=== PATIENT | female | born 1955 | race Caucasian/White ===

== ENCOUNTER 2018-03-07 14:16 | Inpatient (IN) ==
--- NOTE | 2018-03-07 15:55 | P.HPIM ---
History of Present Illness Primary Care Physician: Dr. Crawford Chief Complaint: ankle pain History of Present Illness: This is a 62-year-old female patient with past medical history which includes chronic kidney disease stage II, COPD, hyperlipidemia, hypertension, irritable bowel syndrome, rheumatoid arthritis and seizure disorder. Patient has been directly admitted at the request of podiatry Dr. Sol for displaced right medial malleolar fracture. Dr. Sol plans for surgical intervention tomorrow. Patient does report mechanical fall 03/05/18 with right ankle pain after the fall. Patient reports right ankle tenderness, bruising, edema and pain. Patient also reports she is unable to bear weight on the right lower extremity secondary to pain. She has been using a wheelchair to get around at home. Otherwise patient reports she is in her normal state of health. Patient denies shortness of breath fevers chills nausea vomiting diarrhea constipation or chest pain. PMH: Chronic kidney disease stage II, COPD, hyperlipidemia, hypertension, irritable bowel syndrome, rheumatoid arthritis and seizure disorder PSxH: Cataract surgery, cervical surgery, colonoscopy, EGD, Jasen fundoplication, excision of ear lesions, appendectomy, injection lumbar paravertebral facet joint, decompression of median nerve for carpal tunnel syndrome, MEREDITH/BSO Family medical history reviewed and noncontributory. Social history: , disabled Tobacco former use Denies EtOH use Inpatient Certification Inpatient Certification: I certify that the inpatient services were ordered in accordance with Medicare regulations governing the order. This includes certification that hospital inpatient services are reasonable and necessary and in the case of services not specified as inpatient-only under 42 CFR 419.22(n), that they are appropriately provided as inpatient services in accordance to with the 2-midnight benchmark under 43 CFR 412.3(e) Medications and Allergies Allergies Allergy/AdvReac Type Severity Reaction Status Date / Time No Known Allergies Allergy Uncoded 06/26/14 12:47 Home Medications Medication Instructions Recorded Confirmed Type adalimumab [Humira Pen] See Label Instructions .ROUTE 03/07/18 03/07/18 History .COMPLEX albuterol sulfate [Ventolin HFA] 2 puff INHALATION Q4-6H PRN 03/07/18 03/07/18 History benztropine 2 mg PO BID 03/07/18 03/07/18 History buspirone 10 mg PO TID 03/07/18 03/07/18 History cyclobenzaprine 10 mg PO TID PRN 03/07/18 03/07/18 History donepezil 10 mg PO DAILY 03/07/18 03/07/18 History fluticasone-salmeterol [AirDuo 1 puff INHALATION Q12H 03/07/18 03/07/18 History RespiClick] furosemide 20 mg PO BID 03/07/18 03/07/18 History lamotrigine 200 mg PO AC 03/07/18 03/07/18 History lamotrigine 300 mg PO DAILY@1700 03/07/18 03/07/18 History metoprolol tartrate 50 mg PO BID 03/07/18 03/07/18 History montelukast 10 mg PO QPM 03/07/18 03/07/18 History morphine 30 mg PO TID 03/07/18 03/07/18 History omega 0-ump-gii-fish oil [Fish Oil] 1,000 mg PO DAILY 03/07/18 03/07/18 History ondansetron HCl 8 mg PO TID PRN 03/07/18 03/07/18 History pantoprazole 20 mg PO BID 03/07/18 03/07/18 History ranitidine HCl 150 mg PO HS 03/07/18 03/07/18 History risperidone 0.5 mg PO AC 03/07/18 03/07/18 History risperidone 1 mg PO HS 03/07/18 03/07/18 History rosuvastatin 10 mg PO DAILY 03/07/18 03/07/18 History topiramate 100 mg PO BID 03/07/18 03/07/18 History ursodiol 300 mg PO TID 03/07/18 03/07/18 History venlafaxine 112.5 mg PO DAILY 03/07/18 03/07/18 History vitamin B complex [B 1 tab PO DAILY 03/07/18 03/07/18 History Complex-Vitamin B12] Physical Exam Narrative: GENERAL: This is a well-nourished, well-developed patient, in no apparent distress. CARDIOVASCULAR: Regular rate and rhythm RESPIRATORY: Clear to auscultation. Breath sounds equal bilaterally. GASTROINTESTINAL: Abdomen soft, non-tender, nondistended. Normal active bowel sounds MUSCULOSKELETAL: Extremities without clubbing, cyanosis, or edema. Right LE in splint NEURO: Alert & Oriented x4 to person, place, time, situation. Moves all ext x4 Results Labs CBC & Chem 7: 03/08/18 03:37 03/08/18 03:37 Capringrace VTE Risk Assessment Capcalderoni VTE Risk Assessment: Moderate/High Risk (score >= 2) Arpitrini Risk Assessment Model: Point Value = 1 Point Value = 2 Point Value = 3 Point Value = 5 Age 41-60 Minor surgery BMI > 25 kg/m2 Swollen legs Varicose veins or History of unexplained or recurrent spontaneous Oral contraceptives or hormone replacement Sepsis (< 1 month) Serious lung disease, including pneumonia (< 1 month) Abnormal pulmonary function Acute myocardial infarction Congestive heart failure (< 1 month) History of inflammatory bowel disease Medical patient at bed rest Age 61-74 Arthroscopic surgery Major open surgery (> 45 min) Laparoscopic surgery (> 45 min) Malignancy Confined to bed (> 72 hours) Immobilizing plaster cast Central venous access Age >= 75 History of VTE Family history of VTE Factor V Leiden Prothrombin [id number] Lupus anticoagulant Anticardiolipin antibodies Elevated serum homocysteine Heparin-induced thrombocytopenia Other congenital or acquired thrombophilia Stroke (< 1 month) Elective arthroplasty Hip, pelvis, or leg fracture Acute spinal cord injury (< 1 month) Prophylaxis Regimen: Total Risk Factor Score Risk Level Prophylaxis Regimen 0-1 Low Early ambulation 2 Moderate Order ONE of the following: *Sequential Compression Device (SCD) *Heparin 5000 units SQ BID 3-4 Higher Order ONE of the following medications: *Heparin 5000 units SQ TID *Enoxaparin/Lovenox 40 mg SQ daily (WT < 150 kg, CrCl > 30 mL/min) *Enoxaparin/Lovenox 30 mg SQ daily (WT < 150 kg, CrCl > 10-29 mL/min) *Enoxaparin/Lovenox 30 mg SQ BID (WT < 150 kg, CrCl > 30 mL/min) AND/OR *Sequential Compression Device (SCD) 5 or more Highest Order ONE of the following medications: *Heparin 5000 units SQ TID (Preferred with Epidurals) *Enoxaparin/Lovenox 40 mg SQ daily (WT < 150 kg, CrCl > 30 mL/min) *Enoxaparin/Lovenox 30 mg SQ daily (WT < 150 kg, CrCl > 10-29 mL/min) *Enoxaparin/Lovenox 30 mg SQ BID (WT < 150 kg, CrCl > 30 mL/min) AND *Sequential Compression Device (SCD) Assessment and Plan Plan This is a 62-year-old female patient with past medical history which includes chronic kidney disease stage II, COPD, hyperlipidemia, hypertension, irritable bowel syndrome, rheumatoid arthritis and seizure disorder. Patient has been directly admitted at the request of podiatry Dr. Sol for displaced right medial malleolar fracture. Dr. Sol and plans for surgical intervention tomorrow. Patient does report mechanical fall with right ankle pain after the fall. Patient reports right ankle tenderness bruising edema and pain. Patient also reports she is unable to bear weight on the right lower extremity secondary to pain. Otherwise patient reports she is in her normal state of health. Patient denies shortness of breath fevers chills nausea vomiting diarrhea constipation or chest pain. Displaced right medial malleolar fracture Consult to podiatry Dr. Sol, plans for surgical intervention tomorrow afternoon Chronic kidney disease stage II Avoid nephrotoxic agents Monitor renal function COPD Continue home Air Duo Duonebs as needed Hyperlipidemia Continue home rosuvastatin Hypertension Continue home BP medications Rheumatoid arthritis continue home morphine ER 30 mg PO Q8h hold Humira at this time Seizure disorder continue home lamotrigine BID DVT prophylaxis with SCD on non-affected leg. Chemical DVT prophylaxis once cleared by podiatry
[2018-03-07] MEDS ORDERED: Acetaminophen 325 MG Tablet PO PRN (15:57)
--- NOTE | 2018-03-07 16:26 | XR ---
EXAM DATE: 03/07/2018 4:22 PM EST AGE/SEX: 62 years / Female INDICATIONS: Evaluate for pneumonia, pneumothorax, or communicable disease. Pre op ankle surgery. CLINICAL DATA: This is the patient's initial encounter. Patient reports that signs and symptoms have been present for 1 day and indicates a pain score of 0/10. MEDICAL/SURGICAL HISTORY: Chronic obstructive pulmonary disease. None. COMPARISON: No prior exams available for comparison. FINDINGS: A single AP view of the chest demonstrates the lungs to be symmetrically aerated without evidence of mass, infiltrate or effusion. Tiny granuloma in the right midlung. The cardiomediastinal contours ar e unremarkable. Osseous structures are intact. CONCLUSION: No acute intrathoracic disease. Electronically signed by: Yayo Rasmussen MD Board Certified Radiologist 03/07/2018 4:24 PM EST
[2018-03-07] MEDS ORDERED: FLUTICASONE SALMETEROL INHALATION SCH (16:30)
[2018-03-07] MEDS ORDERED: LAMOTRIGINE 300 MG PO SCH (17:00)
[2018-03-07] MEDS: Morphine Sulfate 30 MG SR Tablet PO SCH (18:31)
[2018-03-07] MEDS: Montelukast 10 MG Tablet PO SCH (18:36)
[2018-03-07] MEDS ORDERED: [UNRECOGNIZED DRUG - OTHER] INH SCH (20:00)
[2018-03-07] MEDS: Topiramate 100 MG Tablet PO SCH (21:34)
[2018-03-07] MEDS: Metoprolol Tartrate 50 MG Tablet PO SCH (21:34)
[2018-03-07] MEDS: Senna/Docusate Sodium 8.6/50 MG Tablet PO SCH (21:35)
[2018-03-07] MEDS: Pantoprazole Sodium 20 MG DR Tablet PO SCH (21:36)
[2018-03-08] MEDS: Morphine Sulfate 30 MG SR Tablet PO SCH ×3 (02:08→20:09)
[2018-03-08 04:38] LABS: Baso # (Auto) 0.1 th/mm3 (0.0-0.2); Eos # (Auto) 0.6 th/mm3 (0.0-0.4); Eos % (Auto) 7.6 % (0.0-4.0); Hemoglobin 11.8 gm/dL (11.6-15.3); Lymph # (Auto) 2.3 th/mm3 (1.0-4.8); Mean Corpuscular HGB Conc 33.7 % (32.0-36.0); Mean Corpuscular Hemoglobin 28.4 pg (27.0-34.0); Mean Corpuscular Volume 84.4 fL (80.0-100.0); Mean Platelet Volume 7.6 fL (7.0-11.0); Mono # (Auto) 0.9 th/mm3 (0.0-0.9); Mono % (Auto) 10.9 % (0.0-8.0); Neut # (Auto) 4.3 th/mm3 (1.8-7.7); Neut % (Auto) 52.5 % (16.0-70.0); Platelet Count 290 th/mm3 (150-450); Red Blood Count 4.15 mil/mm3 (4.00-5.30); Red Cell Distribution Width 15.3 % (11.6-17.2); White Blood Count 8.2 th/mm3 (4.0-11.0)
[2018-03-08 04:43] LABS: INR 1.1 Ratio; Prothrombin Time 10.8 sec (9.8-11.6)
[2018-03-08 05:07] LABS: Alanine Aminotransferase 45 U/L (10-53); Albumin 3.3 g/dL (3.4-5.0); Anion Gap 7 meq/L (5-15); Aspartate Aminotransferase 47 U/L (15-37); Blood Urea Nitrogen 13 mg/dL (7-18); Calcium 9.2 mg/dL (8.5-10.1); Carbon Dioxide 30.2 meq/L (21.0-32.0); Chloride 103 meq/L (98-107); Glomerular Filtration Rate 80 mL/min (>89); Glucose,Random 114 mg/dL (74-106); Sodium 140 meq/L (136-145)
[2018-03-08 05:09] LABS: Alkaline Phosphatase 118 U/L (45-117); Total Protein 6.9 g/dL (6.4-8.2)
[2018-03-08] MEDS: Senna/Docusate Sodium 8.6/50 MG Tablet PO SCH ×2 (08:55→22:42)
[2018-03-08] MEDS: Metoprolol Tartrate 50 MG Tablet PO SCH ×2 (08:55→22:26)
[2018-03-08] MEDS: Topiramate 100 MG Tablet PO SCH ×2 (08:56→22:26)
[2018-03-08] MEDS: Pantoprazole Sodium 20 MG DR Tablet PO SCH ×2 (08:56→22:26)
[2018-03-08] MEDS: lamoTRIgine 100 MG Tablet PO SCH ×2 (08:56→19:20)
[2018-03-08] MEDS: Venlafaxine XR 37.5 MG Capsule PO SCH (08:58)
[2018-03-08] MEDS ORDERED: ROSUVASTATIN 10 MG PO SCH (09:00)
[2018-03-08] MEDS ORDERED: Potassium Chlor 20 mEq Premix 20 MEQ/100 ML PIGGYBACK IV.SIG SCH (10:00)
--- NOTE | 2018-03-08 13:45 | ECG ---
Date Performed: 03/08/2018 Time Performed: 02:06:13 PTAGE: 62 years EKG: Sinus rhythm NONSPECIFIC ST & T-WAVE ABNORMALITY BORDERLINE ECG Since the PREVIOUS TRACING , no significant change noted PREVIOUS TRACIN03/07/14 DOCTOR: Zach Joe Interpretating Date/Time 03/08/2018 13:34:00
[2018-03-08] MEDS ORDERED: Metoprolol Tartrate 25 MG Tablet PO SCH (14:04)
[2018-03-08] MEDS ORDERED: Chlorhexidine Gluconate 2% 1 Pack (2 Cloths) TOPICAL ONE (14:04)
[2018-03-08] MEDS ORDERED: Sodium Chlor 0.9% Inj 500 ML IV.SIG SCH (14:15)
[2018-03-08] MEDS ORDERED: Morphine Sulfate Inj 2 MG/ML Vial ONE (15:19)
[2018-03-08] MEDS ORDERED: Morphine Sulfate Inj 2 MG/ML Vial IV.PUSH ONE (15:30)
[2018-03-08] MEDS ORDERED: Famotidine PF Inj 20 MG/2 ML Vial IV.PUSH ONE (15:45)
[2018-03-08] MEDS ORDERED: ceFAZolin Inj 1 GM Vial (Addvantage) IV.SIG ONE (16:16)
--- NOTE | 2018-03-08 16:23 | P.CONPOD ---
History of Present Illness Service: podiatry Consult date: 03/08/18 Reason for Consult: right ankle fracture Primary Care Provider: UNKNOWN Chief Complaint: ankle pain History of Present Illness: Patient sustained right ankle fracture new year'. She was seen in urgent care and came into clinic with ankle pain. She was sent to hospital for surgery due to significant comorbidities. Review of Systems All other systems reviewed negative except as stated in HPI [facility] - History History Provided By: Patient - Medical History Medical History: Medical History (Last Updated 03/07/18 @ 23:17 by Gertrudis Eric RN) COPD (chronic obstructive pulmonary disease) Cataract Chronic kidney disease (CKD) FH: MEREDITH-BSO (total abdominal hysterectomy and bilateral salpingo-oophorectomy) Hyperlipidemia Irritable bowel syndrome Rheumatoid arthritis Seizure disorder - Surgical History Surgical History: Surgical History (Last Updated 03/07/18 @ 23:17 by Gertrudis Eric RN) History of Ting fundoplication Hx of appendectomy - Tobacco History Second Hand Smoke Exposure: No Tobacco Use In Past 30 Days: Yes Smoking Status: Current every day smoker Tobacco Type: Smokeless Tobacco - Alcohol History How Often Do You Have a Drink Containing Alcohol: Never - Substance Use History Substance History: No History of Abuse Medications and Allergies Active Medications: Active Medications Acetaminophen (Tylenol) 650 mg PO Q4H PRN PRN Reason: Temp > 100.4 Hydrocodone Bitart/Acetaminophen ([place] 5/325) 1 tab PO Q4H PRN PRN Reason: pain 1-10, Al Hydroxide/Mg Hydroxide (Milk Of Magndino Liq) 30 ml PO Q12H PRN PRN Reason: Mild Constipation Albuterol (Duoneb Neb (Prn)) 1 ampul NEB Q2HR NEB PRN PRN Reason: SHORTNESS OF BREATH/WHEEZING Last Admin: 03/08/18 15:24 Dose: 1 ampul Atorvastatin Calcium (Lipitor) 20 mg PO DAILY [facility] Last Admin: 03/08/18 08:56 Dose: 20 mg Buspirone HCl (Buspar) 5 mg PO TID [facility] Last Admin: 03/08/18 08:56 Dose: 5 mg Donepezil HCl (Aricept) 10 mg PO DAILY [facility] Last Admin: 03/08/18 08:56 Dose: 10 mg Hydromorphone HCl (Dilaudid Pf Inj) 0.5 mg IV.PUSH Q4H PRN PRN Reason: BREAKTHROUGH PAIN Lactated Ringer's (Lr 1000 Ml Inj) 1,000 mls @ 30 mls/hr IV.SIG .Q24H [facility] Stop: 03/09/18 14:14 Last Admin: 03/08/18 14:00 Dose: 30 mls/hr Sodium Chloride (Ns Inj) 500 mls @ 30 mls/hr IV.SIG .[id number] [facility] Stop: 03/09/18 06:54 Lamotrigine (Lamictal) 200 mg PO DAILY [facility] Last Admin: 03/08/18 08:56 Dose: 200 mg Lamotrigine (Lamictal) 300 mg PO DAILY@1700 [facility] Metoprolol Tartrate (Lopressor) 50 mg PO BID [facility] Last Admin: 03/08/18 08:55 Dose: 50 mg Metoprolol Tartrate (Lopressor) 25 mg PO CASH APPLICATIONS SPECIALIST [facility] Stop: 03/08/18 23:59 Montelukast Sodium (Singulair) 10 mg PO DAILY@1800 [facility] Last Admin: 03/07/18 18:36 Dose: 10 mg Morphine Sulfate (Oramorph Sr) 30 mg PO Q8H [facility] Last Admin: 03/08/18 09:00 Dose: 30 mg Ondansetron HCl (Zofran Inj) 4 mg IV.PUSH Q6H PRN PRN Reason: NAUSEA OR VOMITING Pantoprazole Sodium (Protonix) 20 mg PO BID [facility] Last Admin: 03/08/18 08:56 Dose: 20 mg Pt:Airduo Respiclick 0 each INH Q12H [facility] Risperidone (Risperdal) 1 mg PO HS [facility] Last Admin: 03/07/18 21:35 Dose: 1 mg Senna/Docusate Sodium (Felipa-Colace) 1 tab PO BID [facility] Last Admin: 03/08/18 08:55 Dose: 1 tab Sodium Chloride (Ns Flush) 2 ml IV.FLUSH BID [facility] Last Admin: 03/08/18 08:56 Dose: 2 ml Sodium Chloride (Ns Flush) 2 ml IV.FLUSH PRN PRN PRN Reason: FLUSH AFTER USING IV ACCESS Topiramate (Topamax) 100 mg PO BID [facility] Last Admin: 03/08/18 08:56 Dose: 100 mg Ursodiol (Actigall) 300 mg PO TID [facility] Last Admin: 03/08/18 08:55 Dose: 300 mg Venlafaxine HCl (Effexor Xr) 37.5 mg PO DAILY [facility] Last Admin: 03/08/18 08:58 Dose: 37.5 mg Allergies Allergy/AdvReac Type Severity Reaction Status Date / Time No Known Allergies Allergy Uncoded 06/26/14 12:47 Home Medications Medication Instructions Recorded Confirmed Type adalimumab [Humira Pen] See Label Instructions .ROUTE 03/07/18 03/07/18 History .COMPLEX albuterol sulfate [Ventolin HFA] 2 puff INHALATION Q4-6H PRN 03/07/18 03/07/18 History benztropine 2 mg PO BID 03/07/18 03/07/18 History buspirone 10 mg PO TID 03/07/18 03/07/18 History cyclobenzaprine 10 mg PO TID PRN 03/07/18 03/07/18 History donepezil 10 mg PO DAILY 03/07/18 03/07/18 History fluticasone-salmeterol [AirDuo 1 puff INHALATION Q12H 03/07/18 03/07/18 History RespiClick] furosemide 20 mg PO BID 03/07/18 03/07/18 History lamotrigine 200 mg PO AC 03/07/18 03/07/18 History lamotrigine 300 mg PO DAILY@1700 03/07/18 03/07/18 History metoprolol tartrate 50 mg PO BID 03/07/18 03/07/18 History montelukast 10 mg PO QPM 03/07/18 03/07/18 History morphine 30 mg PO TID 03/07/18 03/07/18 History omega 4-yfw-irf-fish oil [Fish Oil] 1,000 mg PO DAILY 03/07/18 03/07/18 History ondansetron HCl 8 mg PO TID PRN 03/07/18 03/07/18 History pantoprazole 20 mg PO BID 03/07/18 03/07/18 History ranitidine HCl 150 mg PO HS 03/07/18 03/07/18 History risperidone 0.5 mg PO AC 03/07/18 03/07/18 History risperidone 1 mg PO HS 03/07/18 03/07/18 History rosuvastatin 10 mg PO DAILY 03/07/18 03/07/18 History topiramate 100 mg PO BID 03/07/18 03/07/18 History ursodiol 300 mg PO TID 03/07/18 03/07/18 History venlafaxine 112.5 mg PO DAILY 03/07/18 03/07/18 History vitamin B complex [B 1 tab PO DAILY 03/07/18 03/07/18 History Complex-Vitamin B12] Physical Exam Vital signs: Vital Signs 03/07/18 20:00 03/08/18 00:00 03/08/18 04:00 Temperature 98.8 F 98.7 F 98.4 F Pulse Rate 74 68 60 Respiratory Rate 18 18 18 Blood Pressure 133/60 119/60 126/59 L Pulse Oximetry 95 95 94 L 03/08/18 08:00 03/08/18 11:35 03/08/18 12:00 Temperature 98.5 F 98.9 F Pulse Rate 62 53 L Respiratory Rate 20 16 16 Blood Pressure 124/65 132/57 L Pulse Oximetry 93 L 92 L Intake & Output 03/07/18 03/08/18 03/08/18 18:59 06:59 18:59 Weight 72 kg Other: Date of Last Bowel Movement 03/05/18 Weight On Admission 72 kg Narrative: Right lower extremity neurovascularly intact. Pain to medial and lateral right ankle diffusely. Mild ecchymosis medial/lateral heel areas. No open lesion noted. Results - Labs CBC & Chem 7: 03/08/18 03:37 03/08/18 03:37 Laboratory Results - last 24 hr 03/08/18 03/08/18 03/08/18 03:37 03:37 03:37 WBC 8.2 RBC 4.15 Hgb 11.8 Hct 35.0 MCV 84.4 MCH 28.4 MCHC 33.7 RDW 15.3 Plt Count 290 MPV 7.6 Neut % (Auto) 52.5 Lymph % (Auto) 28.0 [place] % (Auto) 10.9 H Eos % (Auto) 7.6 H Baso % (Auto) 1.0 Neut # (Auto) 4.3 Lymph # (Auto) 2.3 [place] # (Auto) 0.9 Eos # (Auto) 0.6 H Baso # (Auto) 0.1 WBC Differential . Differential Comment Auto diff final PT 10.8 INR 1.1 Sodium 140 Potassium 3.0 L Chloride 103 Carbon Dioxide 30.2 Anion Gap 7 BUN 13 Creatinine 0.74 Estimated GFR 80 L Random Glucose 114 H Calcium 9.2 Magnesium Total Bilirubin 0.4 AST 47 H ALT 45 Alkaline Phosphatase 118 H Total Protein 6.9 Albumin 3.3 L 03/08/18 03:37 WBC RBC Hgb Hct MCV MCH MCHC RDW Plt Count MPV Neut % (Auto) Lymph % (Auto) [place] % (Auto) Eos % (Auto) Baso % (Auto) Neut # (Auto) Lymph # (Auto) [place] # (Auto) Eos # (Auto) Baso # (Auto) WBC Differential Differential Comment PT INR Sodium Potassium Chloride Carbon Dioxide Anion Gap BUN Creatinine Estimated GFR Random Glucose Calcium Magnesium 2.2 Total Bilirubin AST ALT Alkaline Phosphatase Total Protein Albumin - Imaging Impressions Chest X-Ray 03/07/18 00:00 CONCLUSION: No acute intrathoracic disease. Assessment and Plan - Assessment (1) Fracture of ankle, right, closed Code(s): S82.891A - Other fracture of right lower leg, initial encounter for closed fracture Status: Acute - Plan NPO To OR for ORIF Right ankle Risks, benefits, complications explained to patient Do agree with rehab placement upon discharge
--- NOTE | 2018-03-08 16:24 | P.BOP ---
- Preoperative Diagnosis (1) Fracture of ankle, right, closed - Postoperative Diagnosis (1) Fracture of ankle, right, closed Date of procedure: 03/08/18 Procedure: 1. ORIF right ankle fracture Incision over medial malleolus. Fracture reduced and locking hook plate (synthes ) fixation placed. irrigation and Neox graft applied over plate/fracture and closure with 3-0 vicryl, 2-0 nylon. C-arm imaging to confirm reduction and stable fixation. Syndesmosis stressed and found to be intact and stable. Short posterior splint applied after dressing with xeroform, 4x4, cast padding. No tourniquet utilized. 2g ancef IV preop DISPOSITION Recommend rehab placement x 2-4 weeks. Follow up in clinic 1 week for dressing change OK with discharge tomorrow if rehab placement set up by then Implants: see implant log: synthes, amniox graft Anesthesia: GETA Surgeon: Henrry Sol DPM Major Account Representative: staff Estimated blood loss (mL): 20 Pathology: none sent Condition: stable Disposition: PACU
--- NOTE | 2018-03-08 18:00 | XR ---
EXAM DATE: 03/08/2018 5:54 PM EST AGE/SEX: 62 years / Female INDICATIONS: Surgical repair. CLINICAL DATA: This is the patient's initial encounter. Patient reports that signs and symptoms have been present for 1 day and indicates a pain score of Nonresponsive. MEDICAL/SURGICAL HISTORY: Non-responsive. Non-responsive. COMPARISON: No prior exams available for comparison. FINDINGS: Postoperative plate and screw fixation of the distal tibia and medial malleolus. Overlying soft tissu e swelling. Normal alignment. CONCLUSION: Postoperative ankle fixation as above on the right. Electronically signed by: William Durant MD Board Certified Radiologist 03/08/2018 5:59 PM EST
[2018-03-08] MEDS ORDERED: fentaNYL Citrate Inj 100 MCG/2 ML Ampul ONE ×2 (18:28→19:55)
[2018-03-08] MEDS ORDERED: *morphine SULFATE 4 MG/ML PERIprocedure ONLY ONE ×3 (18:34→19:18)
[2018-03-08] MEDS ORDERED: Sugammadex Inj 200 MG/2 ML Vial IV.PUSH ONE (18:35)
--- NOTE | 2018-03-08 18:57 | XR ---
EXAM DATE: 03/08/2018 6:43 PM EST AGE/SEX: 62 years / Female INDICATIONS: Post op right ankle. CLINICAL DATA: This is the patient's initial encounter. Patient reports that signs and symptoms have been present for 1 day and indicates a pain score of Nonresponsive. MEDICAL/SURGICAL HISTORY: Non-responsive. Non-responsive. COMPARISON: No prior exams available for comparison. FINDINGS: There is plate and screw fixation of the distal tibia. Soft tissue swelling is present. There is over lying cast placement. CONCLUSION: Plate and screw fixation of the distal tibia with overlying cast. Normal alignment. Electronically signed by: William Durant MD Board Certified Radiologist 03/08/2018 6:56 PM EST
[2018-03-08] MEDS: HYDROmorphone PF Inj 0.5 MG/0.5 ML Syringe IV.PUSH PRN (20:09)
[2018-03-08] MEDS: Montelukast 10 MG Tablet PO SCH (22:43)
[2018-03-09] MEDS: HYDROmorphone PF Inj 0.5 MG/0.5 ML Syringe IV.PUSH PRN ×4 (00:53→13:32)
[2018-03-09] MEDS: Morphine Sulfate 30 MG SR Tablet PO SCH ×3 (05:49→21:30)
[2018-03-09] MEDS: Senna/Docusate Sodium 8.6/50 MG Tablet PO SCH ×2 (08:44→21:31)
[2018-03-09] MEDS: Topiramate 100 MG Tablet PO SCH ×2 (08:44→21:31)
[2018-03-09] MEDS: Venlafaxine XR 37.5 MG Capsule PO SCH (08:44)
[2018-03-09] MEDS: Pantoprazole Sodium 20 MG DR Tablet PO SCH ×2 (08:45→21:31)
[2018-03-09] MEDS: Metoprolol Tartrate 50 MG Tablet PO SCH ×2 (08:45→21:31)
[2018-03-09] MEDS: lamoTRIgine 100 MG Tablet PO SCH ×2 (08:50→17:42)
[2018-03-09 11:57] LABS: Baso # (Auto) 0.1 th/mm3 (0.0-0.2); Baso % (Auto) 0.9 % (0.0-2.0); Eos # (Auto) 0.1 th/mm3 (0.0-0.4); Eos % (Auto) 1.3 % (0.0-4.0); Hematocrit 37.1 % (35.0-46.0); Hemoglobin 12.2 gm/dL (11.6-15.3); Lymph # (Auto) 2.3 th/mm3 (1.0-4.8); Lymph % (Auto) 21.1 % (9.0-44.0); Mean Corpuscular Hemoglobin 28.6 pg (27.0-34.0); Mean Corpuscular Volume 86.7 fL (80.0-100.0); Mean Platelet Volume 7.5 fL (7.0-11.0); Mono # (Auto) 0.9 th/mm3 (0.0-0.9); Mono % (Auto) 8.2 % (0.0-8.0); Neut # (Auto) 7.3 th/mm3 (1.8-7.7); Neut % (Auto) 68.5 % (16.0-70.0); Platelet Count 319 th/mm3 (150-450); Red Blood Count 4.27 mil/mm3 (4.00-5.30); Red Cell Distribution Width 15.1 % (11.6-17.2); White Blood Count 10.7 th/mm3 (4.0-11.0)
[2018-03-09 12:18] LABS: Calcium 9.2 mg/dL (8.5-10.1); Carbon Dioxide 27.6 meq/L (21.0-32.0); Potassium 3.5 meq/L (3.5-5.1)
--- NOTE | 2018-03-09 13:36 | P.DS ---
DS: Providers Date of admission: 03/07/18 15:17 Primary care physician: UNKNOWN Brief History from admission: This is a 62-year-old female patient with past medical history which includes chronic kidney disease stage II, COPD, hyperlipidemia, hypertension, irritable bowel syndrome, rheumatoid arthritis and seizure disorder. Patient has been directly admitted at the request of podiatry Dr. Sol for displaced right medial malleolar fracture. Dr. Sol plans for surgical intervention tomorrow. Patient does report mechanical fall 03/05/18 with right ankle pain after the fall. Patient reports right ankle tenderness, bruising, edema and pain. Patient also reports she is unable to bear weight on the right lower extremity secondary to pain. She has been using a wheelchair to get around at home. Otherwise patient reports she is in her normal state of health. Patient denies shortness of breath fevers chills nausea vomiting diarrhea constipation or chest pain. PMH: Chronic kidney disease stage II, COPD, hyperlipidemia, hypertension, irritable bowel syndrome, rheumatoid arthritis and seizure disorder PSxH: Cataract surgery, cervical surgery, colonoscopy, EGD, Jasen fundoplication, excision of ear lesions, appendectomy, injection lumbar paravertebral facet joint, decompression of median nerve for carpal tunnel syndrome, MEREDITH/BSO Family medical history reviewed and noncontributory. Social history: , disabled Tobacco former use Denies EtOH use DS: Summary This is a 62-year-old female patient with past medical history which includes chronic kidney disease stage II, COPD, hyperlipidemia, hypertension, irritable bowel syndrome, rheumatoid arthritis and seizure disorder. Patient has been directly admitted at the request of podiatry Dr. Slo for displaced right medial malleolar fracture. Dr. Sol and plans for surgical intervention tomorrow. Patient does report mechanical fall with right ankle pain after the fall. Patient reports right ankle tenderness bruising edema and pain. Patient also reports she is unable to bear weight on the right lower extremity secondary to pain. Otherwise patient reports she is in her normal state of health. Patient denies shortness of breath fevers chills nausea vomiting diarrhea constipation or chest pain. Displaced right medial malleolar fracture Patient S/P ORIF right ankle fracture on 03/08/[address] Sol Podiatry is recommend rehab placement at [place] Follow up in Podiatry clinic 1 week for dressing change Podiatry cleared patient for discharge Continue patient's home Morphine 30 mg PO TID Add Drury PO as needed for pain Chronic kidney disease stage II Avoid nephrotoxic agents Monitor renal function COPD Continue home Air Duo Duonebs as needed Hyperlipidemia Continue home rosuvastatin Hypertension Continue home BP medications Rheumatoid arthritis continue home morphine ER 30 mg PO Q8h hold Humira at this time Seizure disorder continue home lamotrigine BID Time Spent with Patient Total time spent providing and/or coordinating discharge services: Quality: VTE Deep Vein Thrombosis/Pulmonary Embolism Present on Admission: No Exam Narrative Exam Narrative: GENERAL: This is a well-nourished, well-developed patient, in no apparent distress. CARDIOVASCULAR: Regular rate and rhythm RESPIRATORY: Clear to auscultation. Breath sounds equal bilaterally. GASTROINTESTINAL: Abdomen soft, non-tender, nondistended. Normal active bowel sounds MUSCULOSKELETAL: Extremities without clubbing, cyanosis, or edema. Right LE post-op dressing dry and intact NEURO: Alert & Oriented x4 to person, place, time, situation. Moves all ext x4 Results Labs on day of discharge: Labs from last 24 hours 03/09/18 03/09/18 11:21 11:21 WBC 10.7 RBC 4.27 Hgb 12.2 Hct 37.1 MCV 86.7 MCH 28.6 MCHC 33.0 RDW 15.1 Plt Count 319 MPV 7.5 Neut % (Auto) 68.5 Lymph % (Auto) 21.1 [place] % (Auto) 8.2 H Eos % (Auto) 1.3 Baso % (Auto) 0.9 Neut # (Auto) 7.3 Lymph # (Auto) 2.3 [place] # (Auto) 0.9 Eos # (Auto) 0.1 Baso # (Auto) 0.1 WBC Differential . Differential Comment Auto diff final Sodium 142 Potassium 3.5 Chloride 107 Carbon Dioxide 27.6 Anion Gap 7 BUN 12 Creatinine 0.74 Estimated GFR 80 L Random Glucose 147 H Calcium 9.2 Impressions ITS Impressions Chest X-Ray 03/07/18 00:00 CONCLUSION: No acute intrathoracic disease. Ankle X-Ray 03/08/18 00:00 CONCLUSION: Plate and screw fixation of the distal tibia with overlying cast. Normal alignment. Discharge Plan Discharge Disposition Patient Disposition: Discharge to SNF Discharge Condition Condition: Stable Discharge Order Discharge Orders: Discharge Order (Routine); Ordered 03/10/18 Ordered By: Tequila Caraballo Discharge Details Anticipated Discharge Date: 03/10/18 Physicians Team Primary Care Provider: UNKNOWN, Attending Provider: Venkata Howard Rxs /Orders / Referrals /Forms Prescriptions: New morphine 30 mg Tablet Extended Release 30 mg PO TID Qty: 120 RF: 0 hydrocodone-acetaminophen [Drury] 5-325 mg tablet 1 tab PO Q6H PRN (Reason: pain) Qty: 90 RF: 0 Continue cyclobenzaprine 10 mg Tablet 10 mg PO TID PRN (Reason: Muscle Spasm) RF: 0 buspirone 5 mg Tablet 10 mg PO TID RF: 0 venlafaxine 37.5 mg Capsule,Extended Release 24hr 112.5 mg PO DAILY RF: 0 lamotrigine 200 mg Tablet 200 mg PO AC RF: 0 lamotrigine 200 mg Tablet 300 mg PO DAILY@1700 RF: 0 ondansetron HCl 8 mg Tablet 8 mg PO TID PRN (Reason: Nausea And Vomiting) RF: 0 donepezil 10 mg Tablet 10 mg PO DAILY RF: 0 pantoprazole 20 mg Tablet,Delayed Release (Dr/Ec) 20 mg PO BID RF: 0 ursodiol 300 mg Capsule 300 mg PO TID RF: 0 benztropine 1 mg Tablet 2 mg PO BID RF: 0 metoprolol tartrate 50 mg Tablet 50 mg PO BID RF: 0 vitamin B complex [B Complex-Vitamin B12] Tablet 1 tab PO DAILY RF: 0 montelukast 10 mg Tablet 10 mg PO QPM RF: 0 ranitidine HCl 150 mg Capsule 150 mg PO HS RF: 0 furosemide 20 mg Tablet 20 mg PO BID RF: 0 albuterol sulfate [Ventolin HFA] 90 mcg/actuation Hfa Aerosol Inhaler 2 puff INHALATION Q4-6H PRN (Reason: Shortness Of Breath Or Wheezing) RF: 0 topiramate 100 mg Tablet 100 mg PO BID RF: 0 risperidone 1 mg Tablet 1 mg PO HS RF: 0 rosuvastatin 10 mg Tablet 10 mg PO DAILY RF: 0 adalimumab [Humira Pen] 40 mg/0.8 mL Pen Injector Kit See Label Instructions .ROUTE .COMPLEX RF: 0 omega [id number]-fish oil [Fish Oil] 1,000 mg (120 mg-180 mg) Capsule 1,000 mg PO DAILY RF: 0 fluticasone-salmeterol [AirDuo RespiClick] 113-14 mcg/actuation Aerosol Powdr Breath Activated 1 puff INHALATION Q12H RF: 0 risperidone 0.5 mg Tablet 0.5 mg PO AC RF: 0 Referrals: Henrry Sol DPM [Physician] - See Instructions (Follow up in clinic 1 week for dressing change) Daniela Crawford MD [Non-Staff] - See Instructions (follow up in 1 week) Discharge Instructions Patient Printed Instructions: ORIF of an Ankle Fracture (DC) Additional Instructions: Non weight bearing RLE Follow up in podiatry clinic 1 week for dressing change
--- NOTE | 2018-03-09 17:37 | P.PNIM ---
Subjective Interval history: Patient reports that the [employer] in addition to her home morphine 30 mg PO Q8H is not controlling her pain Physical Exam Vital signs: Last Vital Signs Temp 98.1 F 03/09/18 12:00 Pulse 62 03/09/18 12:00 Resp 14 03/09/18 12:00 BP 114/55 L 03/09/18 12:00 Pulse Ox 96 03/09/18 12:00 Narrative: GENERAL: This is a well-nourished, well-developed patient, in no apparent distress. CARDIOVASCULAR: Regular rate and rhythm RESPIRATORY: Clear to auscultation. Breath sounds equal bilaterally. GASTROINTESTINAL: Abdomen soft, non-tender, nondistended. Normal active bowel sounds MUSCULOSKELETAL: Extremities without clubbing, cyanosis, or edema. Right LE in splint NEURO: Alert & Oriented x4 to person, place, time, situation. Moves all ext x4 Results Labs CBC & Chem 7: 03/09/18 11:21 03/09/18 11:21 Assessment and Plan Plan This is a 62-year-old female patient with past medical history which includes chronic kidney disease stage II, COPD, hyperlipidemia, hypertension, irritable bowel syndrome, rheumatoid arthritis and seizure disorder. Patient has been directly admitted at the request of podiatry Dr. Sol for displaced right medial malleolar fracture. Dr. Sol and plans for surgical intervention tomorrow. Patient does report mechanical fall with right ankle pain after the fall. Patient reports right ankle tenderness bruising edema and pain. Patient also reports she is unable to bear weight on the right lower extremity secondary to pain. Otherwise patient reports she is in her normal state of health. Patient denies shortness of breath fevers chills nausea vomiting diarrhea constipation or chest pain. Displaced right medial malleolar fracture Patient S/P ORIF right ankle fracture on 03/08/[address] Sol Podiatry is recommend rehab placement at [place] Follow up in Podiatry clinic 1 week for dressing change Podiatry cleared patient for discharge increase norco to 10mg PO Q4H as needed for pain in addition to her home morphine Chronic kidney disease stage II Avoid nephrotoxic agents Monitor renal function COPD Continue home Air Duo Duonebs as needed Hyperlipidemia Continue home rosuvastatin Hypertension Continue home BP medications Rheumatoid arthritis continue home morphine ER 30 mg PO Q8h hold Humira at this time Seizure disorder continue home lamotrigine BID DVT prophylaxis with SCD on non-affected leg. Chemical DVT prophylaxis once cleared by podiatry Plan to DC to SNF tomorrow if pain controlled Progress Note: Quality VTE Deep Vein Thrombosis/Pulmonary Embolism Present on Admission: No
[2018-03-09] MEDS: Montelukast 10 MG Tablet PO SCH (17:41)
[2018-03-10] MEDS: Morphine Sulfate 30 MG SR Tablet PO SCH ×3 (05:49→21:44)
[2018-03-10] MEDS: Pantoprazole Sodium 20 MG DR Tablet PO SCH ×2 (10:14→21:44)
[2018-03-10] MEDS: Topiramate 100 MG Tablet PO SCH ×2 (10:14→21:44)
[2018-03-10] MEDS: Venlafaxine XR 37.5 MG Capsule PO SCH (10:14)
[2018-03-10] MEDS: Senna/Docusate Sodium 8.6/50 MG Tablet PO SCH ×2 (10:14→21:44)
[2018-03-10] MEDS: lamoTRIgine 100 MG Tablet PO SCH ×2 (10:15→18:16)
[2018-03-10] MEDS: Metoprolol Tartrate 50 MG Tablet PO SCH ×2 (10:15→21:44)
[2018-03-10] MEDS: Montelukast 10 MG Tablet PO SCH (18:16)
[2018-03-10] MEDS: Enoxaparin Inj 30 MG/0.3 ML Syringe SQ SCH (18:21)
[2018-03-11] MEDS: Morphine Sulfate 30 MG SR Tablet PO SCH ×2 (08:15→13:15)
[2018-03-11] MEDS: Venlafaxine XR 37.5 MG Capsule PO SCH (08:16)
[2018-03-11] MEDS: Pantoprazole Sodium 20 MG DR Tablet PO SCH (08:16)
[2018-03-11] MEDS: Topiramate 100 MG Tablet PO SCH (08:16)
[2018-03-11] MEDS: lamoTRIgine 100 MG Tablet PO SCH (08:16)
[2018-03-11] MEDS: Metoprolol Tartrate 50 MG Tablet PO SCH (08:16)
[2018-03-11] MEDS: Senna/Docusate Sodium 8.6/50 MG Tablet PO SCH (08:16)
[2018-03-11] MEDS: Enoxaparin Inj 30 MG/0.3 ML Syringe SQ SCH (08:17)
[2018-03-11 13:10] VITALS: O2SAT 96
[2018-03-11 16:50] VITALS: BP 152/74; PULSE 73; RESP 14; TEMP 98.2
== END 2018-03-11 17:16 | DRG 494 ==
LOC: NEPGCP 15:17 → N06 03-08 13:48 → UNDODISIN 03-09 10:36
PROVIDERS: ADMIT Hospitalist; ATTEND Hospitalist
PROC: ORIFANK (2018-03-08 15:56)
CPT/HCPCS: 71010; 71045; 73610; 76000; 80048; 80053; 83735; 85025; 85610; 93005; 97110; 97116; 97163; 97164; 97530; C1713; J0131; J0690; J1170; J1580; J1650; J2250; J2270; J3010; J3480; J7120; Q4148